=== PATIENT | female | born 1955 | race Caucasian/White ===

== ENCOUNTER 2019-03-20 09:43 | Outpatient (CLI) | payer OTHER ==
--- NOTE | 2019-03-20 10:11 | RAD ---
XR Ankle Lt 3 View STANDARD HISTORY: Injury, left ankle pain FINDINGS: No fracture or dislocation is identified. The ankle mortise is maintained.
--- NOTE | 2019-03-20 10:12 | RAD ---
XR Foot Lt 3 View STANDARD HISTORY: Injury, left foot pain FINDINGS: No fracture or dislocation is identified.
== END 2019-03-20 09:44 | disposition home or self-care (01) ==
LOC: BICRAD 09:43
PROVIDERS: ATTEND Family Medicine
DX: S99.922A Unspecified injury of left foot, initial encounter (principal); M79.672 Pain in left foot

== ENCOUNTER 2020-02-24 19:23 | Emergency (ER) | payer SELFPAY ==
--- NOTE | 2020-02-24 20:12 | CT ---
CT BRAIN WITHOUT CONTRAST: HISTORY: Fall, headache COMPARISON: 02/21/2020 FINDINGS: No evidence of acute infarct, hemorrhage, midline shift or abnormal extra-axial fluid collections is seen. The ventricular size is appropriate and the basilar cisterns are patent. The bony calvarium is intact. The visualized paranasal sinuses and mastoid air cells are well aerated. IMPRESSION: No CT evidence of acute intracranial process.
[2020-02-24 20:20] LABS: #Eosinphils 0.1 thou/uL (0.0-0.7); #Lymphocytes 1.4 thou/uL (1.20-3.40); #Monocytes 0.8 thou/uL (0.11-0.59); #Neutrophils 6.8 thou/uL (1.40-6.50); %Basophils 0.5 % (0.0-1.0); %Eosinophils 0.6 % (0.0-10.0); %Lymphocytes 14.9 % (21.0-51.0); %Monocytes 9.3 % (0.0-10.0); %Neutrophils 74.7 % (42.0-75.0); Hemoglobin 14.8 g/dL (12.0-16.0); Mean Corpuscular HGB CONC 33.9 g/dL (32.0-36.0); Mean Corpuscular Hemoglobin 35.2 pg (27.0-31.0); Mean Platelet Volume 7.5 fL (7.4-10.4); Platelet Count 190 thou/uL (130-400); RBC Distribution Width 11.4 % (11.5-14.5); Red Blood Cell (RBC) Count 4.22 mill/uL (4.20-5.40); White Blood Cell (WBC) Count 9.1 thou/uL (4.8-10.8)
[2020-02-24 20:41] LABS: ALT (SGPT) 22 U/L (8-55); AST (SGOT) 25 U/L (5-34); Albumin 4.2 g/dL (3.4-4.8); Alkaline Phosphatase 117 U/L (40-110); Anion Gap 20 mmol/L (10-20); BUN (Urea Nitrogen) 14 mg/dL (9.8-20.1); CK (CPK) 152 U/L (29-168); Calc. Creatinine Clearance 0 mL/min (70-130); Calcium 9.3 mg/dL (7.8-10.44); Carbon Dioxide 20 mmol/L (23-31); Chloride 103 mmol/L (98-107); Estimated GFR-MDRD 73; Globulin 2.7 g/dL (2.4-3.5); Glucose 107 mg/dL (80-115); Protein, Total 6.9 g/dL (6.0-8.3); Sodium 139 mmol/L (136-145)
--- NOTE | 2020-02-24 20:45 | CT ---
CT CERVICAL SPINE WITHOUT CONTRAST: 02/24/20 COMPARISON: 02/21/20 HISTORY: Patient rolled out of bed and found herself on the floor. Evaluate for fracture. FINDINGS: No craniocervical dissociation. Appropriate alignment of the lateral masses of C1 and C2. Intact odon toid process. Stable multilevel facet arthropathy. Stable grade I anterolisthesis of C4 upon C5. Stab le degenerative changes throughout the cervical spine. No significant change in the soft tissue neck structures. Hypodensity in the right thyroid lobe is on ce again demonstrated. No acute abnormality in the upper mediastinum and lung apices. Stable narrowing of the central spinal canal and neural foramina. No cervical spine fracture. Cervical spine vertebral body heights are maintained. IMPRESSION: No fracture. No significant interval change. POS: PPP
--- NOTE | 2020-02-24 20:48 | RAD ---
EXAM: LEFT SHOULDER TWO VIEWS: 02/24/20 HISTORY: Fall. Pain. FINDINGS: comminuted, displaced fracture involving the proximal left humerus. There is approximately one shaft width displacement. IMPRESSION: Proximal displaced fracture. POS: PPP
--- NOTE | 2020-02-24 20:54 | RAD ---
FOUR VIEWS LEFT ELBOW: 02/24/20 HISTORY: Fall. Pain. FINDINGS: No joint effusion. Preserved joint spaces. No fracture, cortical irregularity or periosteal reaction . IMPRESSION: No fracture. POS: PPP
[2020-02-24] MEDS ORDERED: Morphine 4 MG/ML VIAL ONE (21:15)
[2020-02-24] MEDS ORDERED: Morphine 2 MG/ML VIAL ONE (21:36)
[2020-02-24] MEDS ORDERED: Ketorolac Tromethamine 30 MG/ML VIAL ONE (21:36)
== END 2020-02-24 22:28 | disposition home or self-care (01) ==
LOC: ERS 19:23
DX: S42.292A Other displaced fracture of upper end of left humerus, initial encounter for closed fracture (principal); F41.9 Anxiety disorder, unspecified; F17.210 Nicotine dependence, cigarettes, uncomplicated; W06.XXXA Fall from bed, initial encounter
CPT/HCPCS: 36415; 70450; 72125; 80053; 82550; 84484; 85025; 93005; 96372; J1885; J2270

== ENCOUNTER 2022-02-16 08:21 | Day surgery (SDC) | payer MEDICARE ==
[2022-02-14 13:29] VITALS: BMI 20.8
[2022-02-16] MEDS ORDERED: Lidocaine 1% MPF 2 ML VIAL ONE (09:11)
[2022-02-16] MEDS ORDERED: Acetaminophen 500 MG TAB ONE (10:19)
[2022-02-16] MEDS ORDERED: Ketorolac Tromethamine 30 MG/ML VIAL ONE ×2 (10:19→11:52)
[2022-02-16] MEDS ORDERED: Midazolam HCl 2 mg/2 ml Vial ONE (11:21)
[2022-02-16] MEDS ORDERED: fentaNYL Citrate/PF 100 MCG/2 ML SYRINGE ONE (11:21)
[2022-02-16] MEDS ORDERED: Bupivacaine 0.25% HCL 30 ML VIAL ONE (11:24)
[2022-02-16] MEDS ORDERED: EPINEPHrine 1 MG/ML AMP ONE (11:24)
[2022-02-16] MEDS ORDERED: CEFAZOLIN 2 GM VIAL ONE (11:37)
[2022-02-16] MEDS ORDERED: PROPOFOL 200 MG/20 ML VIAL ONE (11:52)
[2022-02-16] MEDS ORDERED: Dexamethasone 20 MG/5 ML VIAL ONE (11:52)
[2022-02-16] MEDS ORDERED: Rocuronium Bromide 10 MG/ML (10ML VIAL) ONE (11:52)
[2022-02-16] MEDS ORDERED: Ondansetron PF 4 MG/2 ML Vial ONE (11:52)
[2022-02-16] MEDS ORDERED: Fentanyl 100 MCG/2 ML VIAL ONE (13:41)
[2022-02-16] MEDS ORDERED: Morphine 2 MG/ML VIAL ONE (15:01)
[2022-02-16] MEDS ORDERED: HYDROcodone/Acetaminophen 5/325 mg Tablet ONE (15:19)
== END 2022-02-16 16:16 | disposition home or self-care (01) ==
LOC: SDC 08:21
PROVIDERS: ATTEND Specialist
PROC: 0YUA4JZ Supplement Bilateral Inguinal Region with Synthetic Substitute, Percutaneous Endoscopic Approach (ICD-10-PCS; principal; 2022-02-16)
PROC: 8E0W4CZ Robotic Assisted Procedure of Trunk Region, Percutaneous Endoscopic Approach (ICD-10-PCS; 2022-02-16)
DX: K40.20 Bilateral inguinal hernia, without obstruction or gangrene, not specified as recurrent (principal); F17.210 Nicotine dependence, cigarettes, uncomplicated; Z88.0 Allergy status to penicillin; Z88.2 Allergy status to sulfonamides
CPT/HCPCS: 49650; J2270; C1781; J0171; J0690; J1100; J1885; J2250; J2405; J2704; J3010; S0020

== ENCOUNTER 2023-12-14 21:35 | Inpatient (IN) | payer MEDICARE ==
[2023-12-14 22:30] VITALS: BMI 17.5
[2023-12-14] MEDS ORDERED: Ondansetron PF 4 MG/2 ML Vial IVP PRN (23:38)
[2023-12-15] MEDS: Morphine 2 MG/ML VIAL SLOW IVP PRN (00:18)
[2023-12-15 00:26] LABS: #Basophils 0.05 10x3/uL (0.0-0.2); %Basophils 0.7 % (0.0-1.0); %Eosinophils 3.7 % (0.0-10.0); %Monocytes 9.3 % (0.0-10.0); %Neutrophils 55.2 % (42.0-75.0); Hematocrit 34.5 % (36.0-47.0); Hemoglobin 11.6 g/dL (12.0-16.0); Mean Corpuscular HGB CONC 33.6 g/dL (32.0-36.0); Mean Corpuscular Hemoglobin 33.1 pg (27.0-31.0); Mean Corpuscular Volume 98.6 fL (78.0-98.0); Mean Platelet Volume 8.9 fL (7.4-10.4); Platelet Count 247 10x3/uL (130-400); RBC Distribution Width 13.2 % (11.5-14.5)
[2023-12-15 01:12] LABS: Anion Gap 11 mmol/L (10-20); BUN (Urea Nitrogen) 13 mg/dL (9.8-20.1); Calc. Creatinine Clearance 63 mL/min (70-130); Calcium 9.3 mg/dL (7.8-10.44); Carbon Dioxide 23 mmol/L (23-31); Chloride 110 mmol/L (98-107); Estimated GFR 91; Glucose 108 mg/dL (80-115); Potassium 4.2 mmol/L (3.5-5.1); Sodium 140 mmol/L (136-145)
[2023-12-15] MEDS: Enoxaparin 40 MG (0.4 mL) SYRINGE SC SCH ×2 (02:03→20:48)
[2023-12-15] MEDS: Acetaminophen 325 MG TAB PO PRN (05:54)
[2023-12-15] MEDS: traMADol HCl 50 MG TAB PO PRN (05:55)
[2023-12-15 07:13] LABS: Vancomycin, Random 9.4 ug/mL (See Comment)
[2023-12-15] MEDS: Cefepime 1 GM in Sodium Chloride 0.9% 100 ML IVPB SCH (08:32)
[2023-12-15] MEDS ORDERED: Vancomycin 1 GM in Premix 1 BAG IVPB SCH (09:00)
[2023-12-15] MEDS: Vancomycin HCl 750 MG in Sodium Chloride 0.9% 250 ML 250 ML IVPB SCH ×2 (09:11→12:48)
[2023-12-15] MEDS ORDERED: Ibuprofen 600 MG TAB PO PRN (10:04)
[2023-12-15 12:11] VITALS: BMI 17.5
[2023-12-15] MEDS: Morphine 4 MG/ML VIAL SLOW IVP PRN (20:38)
[2023-12-15] MEDS: hydrOXYzine 25 MG TAB PO SCH (22:38)
[2023-12-16 07:00] LABS: #Basophils 0.06 10x3/uL (0.0-0.2); %Basophils 0.9 % (0.0-1.0); %Lymphocytes 33.7 % (21.0-51.0); %Monocytes 8.6 % (0.0-10.0); %Neutrophils 51.5 % (42.0-75.0); Hematocrit 43.3 % (36.0-47.0); Mean Corpuscular HGB CONC 32.3 g/dL (32.0-36.0); Mean Corpuscular Volume 99.1 fL (78.0-98.0); Mean Platelet Volume 9.2 fL (7.4-10.4); Platelet Count 283 10x3/uL (130-400); RBC Distribution Width 13.1 % (11.5-14.5); Red Blood Cell (RBC) Count 4.37 mill/uL (4.20-5.40)
[2023-12-16 07:41] LABS: ALT (SGPT) 10 U/L (8-55); AST (SGOT) 16 U/L (5-34); Albumin 4.1 g/dL (3.4-4.8); Alkaline Phosphatase 100 U/L (40-110); Anion Gap 13 mmol/L (10-20); BUN (Urea Nitrogen) 11 mg/dL (9.8-20.1); Bilirubin, Direct 0.2 mg/dL (0.1-0.3); Bilirubin, Total 0.4 mg/dL (0.2-1.2); Calc. Creatinine Clearance 62 mL/min (70-130); Calcium 10.2 mg/dL (7.8-10.44); Carbon Dioxide 23 mmol/L (23-31); Chloride 104 mmol/L (98-107); Estimated GFR 90; Glucose 89 mg/dL (80-115); Magnesium 2.1 mg/dL (1.6-2.6); Potassium 3.9 mmol/L (3.5-5.1); Protein, Total 8.1 g/dL (5.8-8.1); Sodium 136 mmol/L (136-145)
[2023-12-16 07:47] LABS: Vancomycin, Random 11.6 ug/mL (See Comment)
[2023-12-16] MEDS: Vancomycin (BATCH) 1.5 GM in Premix 1 BAG IVPB SCH (09:25)
[2023-12-16] MEDS: Morphine 4 MG/ML VIAL SLOW IVP PRN (20:32)
[2023-12-17 06:51] LABS: #Basophils 0.05 10x3/uL (0.0-0.2); %Basophils 0.7 % (0.0-1.0); %Eosinophils 5.1 % (0.0-10.0); %Monocytes 12.6 % (0.0-10.0); %Neutrophils 51.5 % (42.0-75.0); Hematocrit 37.2 % (36.0-47.0); Hemoglobin 12.3 g/dL (12.0-16.0); Mean Corpuscular HGB CONC 33.1 g/dL (32.0-36.0); Mean Corpuscular Hemoglobin 31.6 pg (27.0-31.0); Mean Corpuscular Volume 95.6 fL (78.0-98.0); Mean Platelet Volume 9.3 fL (7.4-10.4); Platelet Count 266 10x3/uL (130-400); RBC Distribution Width 13.1 % (11.5-14.5); Red Blood Cell (RBC) Count 3.89 mill/uL (4.20-5.40)
[2023-12-17 07:24] LABS: Anion Gap 12 mmol/L (10-20); BUN (Urea Nitrogen) 13 mg/dL (9.8-20.1); Calc. Creatinine Clearance 59 mL/min (70-130); Calcium 9.8 mg/dL (7.8-10.44); Carbon Dioxide 25 mmol/L (23-31); Chloride 106 mmol/L (98-107); Estimated GFR 86; Glucose 95 mg/dL (80-115); Potassium 3.8 mmol/L (3.5-5.1); Sodium 139 mmol/L (136-145)
[2023-12-17] MEDS: Senokot S 8.6-50 MG TAB PO PRN (23:13)
[2023-12-18 06:34] LABS: #Basophils 0.09 10x3/uL (0.0-0.2); %Basophils 1.1 % (0.0-1.0); %Eosinophils 5.6 % (0.0-10.0); %Lymphocytes 29.2 % (21.0-51.0); %Neutrophils 52.8 % (42.0-75.0); Hematocrit 39.8 % (36.0-47.0); Hemoglobin 12.7 g/dL (12.0-16.0); Mean Corpuscular HGB CONC 31.9 g/dL (32.0-36.0); Mean Corpuscular Volume 100.3 fL (78.0-98.0); Mean Platelet Volume 9.4 fL (7.4-10.4); Platelet Count 281 10x3/uL (130-400); RBC Distribution Width 13.1 % (11.5-14.5); Red Blood Cell (RBC) Count 3.97 mill/uL (4.20-5.40)
[2023-12-18 06:49] LABS: Vancomycin, Random 15.7 ug/mL (See Comment)
[2023-12-18 06:53] LABS: Anion Gap 15 mmol/L (10-20); BUN (Urea Nitrogen) 13 mg/dL (9.8-20.1); Calc. Creatinine Clearance 61 mL/min (70-130); Calcium 9.8 mg/dL (7.8-10.44); Carbon Dioxide 24 mmol/L (23-31); Chloride 105 mmol/L (98-107); Estimated GFR 88; Glucose 90 mg/dL (80-115); Magnesium 2.1 mg/dL (1.6-2.6); Potassium 4.2 mmol/L (3.5-5.1); Sodium 140 mmol/L (136-145)
[2023-12-18] MEDS ORDERED: Lidocaine 1% PF 5 ML VIAL ONE (07:08)
[2023-12-18] MEDS ORDERED: Lidocaine 1% (PF) 30 ML VIAL ONE (07:08)
[2023-12-18] MEDS ORDERED: Ondansetron PF 4 MG/2 ML Vial ONE (07:08)
[2023-12-18] MEDS ORDERED: Dexamethasone 20 MG/5 ML VIAL ONE (07:08)
[2023-12-18] MEDS ORDERED: fentaNYL PF 100 MCG/2 ML SYRINGE ONE (07:09)
[2023-12-18] MEDS ORDERED: PROPOFOL 20 ML ONE (07:09)
[2023-12-18] MEDS ORDERED: ePHEDrine Sulfate 50 MG/10 ML VIAL ONE (07:44)
[2023-12-18] MEDS ORDERED: PHENYLEPHRINE-NS 100 MCG/ML 10 ML SYRINGE ONE (07:55)
[2023-12-18] MEDS ORDERED: Glycopyrrolate 0.2 MG/ML 5 ML SYRINGE ONE (07:55)
[2023-12-18] MEDS ORDERED: fentaNYL 50 mcg/mL 1 mL Vial ONE (08:34)
[2023-12-18 12:13] VITALS: BP 98/61; TEMP 98
[2023-12-18] MEDS ORDERED: Vancomycin HCl 750 MG in Sodium Chloride 0.9% 250 ML 250 ML IVPB SCH (20:00)
== END 2023-12-18 15:07 | disposition home or self-care (01) | DRG 505 ==
LOC: T4-A 21:58
PROVIDERS: ADMIT Internal Medicine; ATTEND Family Medicine
PROC: 0Y6S0Z3 Detachment at Left 2nd Toe, Low, Open Approach (ICD-10-PCS; principal; 2023-12-18)
DX: M86.8X7 Other osteomyelitis, ankle and foot (principal); F17.210 Nicotine dependence, cigarettes, uncomplicated; L97.529 Non-pressure chronic ulcer of other part of left foot with unspecified severity; Z71.6 Tobacco abuse counseling; Z88.0 Allergy status to penicillin; Z88.2 Allergy status to sulfonamides
CPT/HCPCS: 36415; 80048; 80076; 80202; 82565; 83036; 83735; 85025; 87040; 87070; 87076; 87077; 87186; 87205; 88305; 88311; 93005; 93010; J0692; J1100; J1650; J2001; J2270; J2272; J2405; J2704; J3010; J3370; J3490; J7050

== ENCOUNTER 2024-11-25 11:00 | Outpatient (CLI) | payer MEDICARE ==
[~2024-11-25 11:00] MED LIST: Iopamidol 370 76% 100 ML VIAL ONE
[2024-11-25 14:25] LABS: Estimated GFR - POC 92.0
== END 2024-11-25 11:01 | disposition home or self-care (01) ==
LOC: PET 11:00
PROVIDERS: ATTEND Student in an Organized Health Care Education/Training Program
DX: C34.11 Malignant neoplasm of upper lobe, right bronchus or lung (principal); H74.8X2 Other specified disorders of left middle ear and mastoid; G31.9 Degenerative disease of nervous system, unspecified; R90.82 White matter disease, unspecified; I67.82 Cerebral ischemia; R91.8 Other nonspecific abnormal finding of lung field; R59.0 Localized enlarged lymph nodes; C77.1 Secondary and unspecified malignant neoplasm of intrathoracic lymph nodes
CPT/HCPCS: 36415; 70553; 71270; 76376; 78815; 82565 ×2; A9552; Q9967

== ENCOUNTER 2024-12-24 07:05 | Day surgery (SDC) | payer MEDICARE ==
[2024-12-23 10:08] VITALS: BMI 18.3
[2024-12-24] MEDS ORDERED: Famotidine/PF 20 mg/2ml Vial ONE (09:22)
[2024-12-24] MEDS ORDERED: PROPOFOL 20 ML ONE (09:24)
[2024-12-24] MEDS ORDERED: CEFAZOLIN 2 GM VIAL ONE (09:25)
[2024-12-24] MEDS ORDERED: Ondansetron PF 4 MG/2 ML Vial ONE (09:57)
[2024-12-24] MEDS ORDERED: PHENYLEPHRINE-NS 100 MCG/ML 10 ML SYRINGE ONE (10:02)
[2024-12-24] MEDS ORDERED: HYDROmorphone 0.5 MG/0.5 ML SYRINGE ONE (10:33)
== END 2024-12-24 11:35 | disposition home or self-care (01) ==
LOC: SDC 07:05
PROVIDERS: ATTEND Student in an Organized Health Care Education/Training Program
PROC: 0JH60XZ Insertion of Tunneled Vascular Access Device into Chest Subcutaneous Tissue and Fascia, Open Approach (ICD-10-PCS; principal; 2024-12-24)
DX: C34.11 Malignant neoplasm of upper lobe, right bronchus or lung (principal); F17.210 Nicotine dependence, cigarettes, uncomplicated; J44.9 Chronic obstructive pulmonary disease, unspecified; Z88.0 Allergy status to penicillin; Z88.2 Allergy status to sulfonamides; Z98.890 Other specified postprocedural states; Z79.899 Other long term (current) drug therapy
CPT/HCPCS: 36561; 71045; J0169; J0665; J1171; J1642; J2405; J2704; J3010; J3490; C1788; J1308

== ENCOUNTER 2025-02-15 10:19 | Inpatient (IN) | payer MEDICARE ==
[2025-02-15] MEDS ORDERED: Ondansetron PF 4 MG/2 ML Vial ONE (11:26)
[2025-02-15 11:37] LABS: Hematocrit 24.7 % (36.0-47.0); Hemoglobin 8.0 g/dL (12.0-16.0); Mean Corpuscular Hemoglobin 31.6 pg (27.0-31.0); Mean Corpuscular Volume 97.6 fL (78.0-98.0); Platelet Count 127 10x3/uL (130-400); Red Blood Cell (RBC) Count 2.53 mill/uL (4.20-5.40); White Blood Cell (WBC) Count 3.66 10x3/uL (4.8-10.8)
[2025-02-15 11:46] LABS: INR-International Normal Ratio 1.0; Prothrombin Time 13.6 sec (12.0-14.7)
[2025-02-15 11:47] LABS: PTT 36.7 sec (22.9-36.1)
[2025-02-15 11:50] LABS: ALT (SGPT) Less than 7 U/L (Less than 34); AST (SGOT) 15 U/L (11-34); Albumin 3.7 g/dL (3.1-4.5); Alkaline Phosphatase 90 U/L (40-110); Anion Gap 15 mmol/L (10-20); BUN (Urea Nitrogen) 21 mg/dL (9.8-20.1); Bilirubin, Total 0.5 mg/dL (0.3-1.2); Calc. Creatinine Clearance 0 mL/min (70-130); Calcium 9.6 mg/dL (7.8-10.44); Carbon Dioxide 21 mmol/L (23-31); Chloride 102 mmol/L (98-107); Globulin 4.1 g/dL (2.4-3.5); Glucose 100 mg/dL (83-110); Potassium 3.5 mmol/L (3.5-5.1); Sodium 134 mmol/L (136-145)
[2025-02-15 12:16] LABS: Anisocytosis MODERATE=16-30 cells HPF (0-5); Macrocytosis SLIGHT = 6-15 cells HPF (0-5); Platelet Adequacy Comment Platelets Normal; Polychromasia MODERATE = 3-4 cells HPF (0-2)
[2025-02-15] MEDS ORDERED: Dexamethasone 10 MG/ML VIAL ONE (13:07)
[2025-02-15] MEDS ORDERED: Ketorolac Tromethamine 30 MG (1 mL) VIAL ONE (13:07)
[2025-02-15] MEDS ORDERED: Ondansetron PF 4 MG/2 ML Vial IVP PRN (13:33)
[2025-02-15] MEDS ORDERED: Acetaminophen 325 MG TAB PO PRN (13:33)
[2025-02-15] MEDS ORDERED: HYDROcodone/Acetaminophen 7.5/325 mg Tablet PO PRN (13:50)
[2025-02-15 14:54] VITALS: BMI 18.0
[2025-02-15] MEDS: HYDROcodone/Acetaminophen 5/325 mg Tablet PO PRN (16:09)
[2025-02-15] MEDS: Cyclobenzaprine 10 MG TAB PO PRN (18:02)
[2025-02-15] MEDS: Famotidine 20 MG TAB PO SCH (21:05)
[2025-02-16 06:37] LABS: Hematocrit 25.0 % (36.0-47.0); Hemoglobin 8.0 g/dL (12.0-16.0); Mean Corpuscular Hemoglobin 31.6 pg (27.0-31.0); Mean Corpuscular Volume 98.8 fL (78.0-98.0); Platelet Count 121 10x3/uL (130-400); Red Blood Cell (RBC) Count 2.53 mill/uL (4.20-5.40); White Blood Cell (WBC) Count 1.71 10x3/uL (4.8-10.8)
[2025-02-16 06:40] LABS: Anion Gap 13 mmol/L (10-20); BUN (Urea Nitrogen) 18 mg/dL (9.8-20.1); Calc. Creatinine Clearance 69 mL/min (70-130); Calcium 9.5 mg/dL (7.8-10.44); Carbon Dioxide 21 mmol/L (23-31); Chloride 105 mmol/L (98-107); Glucose 137 mg/dL (83-110); Potassium 4.7 mmol/L (3.5-5.1); Sodium 134 mmol/L (136-145)
[2025-02-16 07:31] LABS: Anisocytosis SLIGHT = 6-15 cells HPF (0-5); Burr Cells SLIGHT = 2-5 cells HPF (0-1); Platelet Adequacy Comment Platelets Decreased; Poikilocytosis MODERATE=16-30 cells HPF (0-5); Polychromasia MARKED = >4 cells HPF (0-2); Smudge Cells 10.0 %
[2025-02-16] MEDS: Mirtazapine 15 MG TAB PO PRN (20:18)
[2025-02-17 02:17] LABS: Bacteria/HPF 2+ HPF (None Seen); CAUTI Indications for Culture Dysuria,urgency,freq; Glucose, Urine (Dipstick) Normal (Negative); Leukocyte Negative Leu/uL (Negative); Protein, Urine (Dipstick) Negative (Neg-Trace); RBC/HPF 0-3 HPF (0-3); Specific Gravity, Urine 1.005 (1.002-1.036); WBC/HPF 0-3 HPF (0-3)
[2025-02-17 02:22] LABS: Urine Culture Reflex No No
[2025-02-17 06:10] LABS: Anion Gap 18 mmol/L (10-20); BUN (Urea Nitrogen) 15 mg/dL (9.8-20.1); Calc. Creatinine Clearance 70 mL/min (70-130); Calcium 9.4 mg/dL (7.8-10.44); Carbon Dioxide 20 mmol/L (23-31); Chloride 109 mmol/L (98-107); Glucose 128 mg/dL (83-110); Potassium 5.2 mmol/L (3.5-5.1); Sodium 142 mmol/L (136-145)
[2025-02-17 06:12] LABS: #Basophils Less than 0.03 10x3/uL (0.0-0.2); #Eosinophils Less than 0.03 10x3/uL (0.0-0.7); #Monocytes 0.17 10x3/uL (0.11-0.59); #Neutrophils 2.15 10x3/uL (1.40-6.50); %Basophils 0.0 % (0.0-1.0); %Eosinophils 0.0 % (0.0-10.0); %Lymphocytes 7.5 % (21.0-51.0); %Monocytes 6.7 % (0.0-10.0); %Neutrophils 85.0 % (42.0-75.0); Hematocrit 23.6 % (36.0-47.0); Hemoglobin 7.5 g/dL (12.0-16.0); Mean Corpuscular Hemoglobin 31.6 pg (27.0-31.0); Mean Corpuscular Volume 99.6 fL (78.0-98.0); Platelet Count 137 10x3/uL (130-400); Red Blood Cell (RBC) Count 2.37 mill/uL (4.20-5.40); White Blood Cell (WBC) Count 2.53 10x3/uL (4.8-10.8)
[2025-02-17 06:58] LABS: Anisocytosis SLIGHT = 6-15 cells HPF (0-5); Macrocytosis SLIGHT = 6-15 cells HPF (0-5); Platelet Adequacy Comment Platelets Normal; Polychromasia SLIGHT = 2-3 cells HPF (0-2); Smudge Cells 9.0 %
[2025-02-17 10:17] VITALS: BP 113/69; TEMP 98.2
[2025-02-17 14:37] VITALS: BMI 18.0
== END 2025-02-17 14:05 | disposition home or self-care (01) | DRG 551 ==
LOC: ERS 10:19 → T4-A 13:22 → OBSVTOIN 02-17 09:12
PROVIDERS: ADMIT Internal Medicine; ATTEND Hospitalist
DX: M48.061 Spinal stenosis, lumbar region without neurogenic claudication (principal); D61.810 Antineoplastic chemotherapy induced pancytopenia; G83.4 Cauda equina syndrome; I45.19 Other right bundle-branch block; M51.369 Other intervertebral disc degeneration, lumbar region without mention of lumbar back pain or lower extremity pain; M43.16 Spondylolisthesis, lumbar region; M54.16 Radiculopathy, lumbar region; R32 Unspecified urinary incontinence; Z85.118 Personal history of other malignant neoplasm of bronchus and lung; Z98.890 Other specified postprocedural states; Z98.51 Tubal ligation status; Z88.0 Allergy status to penicillin; Z88.2 Allergy status to sulfonamides
CPT/HCPCS: 36415; 72148; 80048; 80053; 81001; 85025; 85610; 85730; 86141; 93005; 94640; 96374; 96375; 96376; G0378; J1100; J1885; J7030

== ENCOUNTER 2025-03-26 09:42 | Outpatient (CLI) | payer MEDICARE | END 2025-03-26 09:43 | disposition home or self-care (01) | LOC: MRI 09:42 | PROVIDERS: ATTEND Radiology Radiation Oncology | DX: M54.6 Pain in thoracic spine (principal); C34.11 Malignant neoplasm of upper lobe, right bronchus or lung; M47.814 Spondylosis without myelopathy or radiculopathy, thoracic region; S22.059A Unspecified fracture of T5-T6 vertebra, initial encounter for closed fracture; S22.069A Unspecified fracture of T7-T8 vertebra, initial encounter for closed fracture; S22.019A Unspecified fracture of first thoracic vertebra, initial encounter for closed fracture; M43.12 Spondylolisthesis, cervical region; M47.812 Spondylosis without myelopathy or radiculopathy, cervical region; R93.7 Abnormal findings on diagnostic imaging of other parts of musculoskeletal system | CPT/HCPCS: 72156; 72157 ==

== ENCOUNTER 2025-03-31 08:17 | Outpatient (CLI) | payer MEDICARE ==
[2025-03-31 08:46] LABS: Estimated GFR - POC 92.0
[2025-03-31] MEDS ORDERED: Iopamidol 370 76% 100 ML VIAL ONE (09:46)
== END 2025-03-31 08:18 | disposition home or self-care (01) ==
LOC: CT 08:17
PROVIDERS: ATTEND Internal Medicine Hematology & Oncology
DX: C34.81 Malignant neoplasm of overlapping sites of right bronchus and lung (principal); S12.600D Unspecified displaced fracture of seventh cervical vertebra, subsequent encounter for fracture with routine healing; S22.019D Unspecified fracture of first thoracic vertebra, subsequent encounter for fracture with routine healing
CPT/HCPCS: 36415; 71260; 74177; 82565 ×2; Q9967